=== PATIENT | male | born 1960 | race Hispanic/Latino ===

== ENCOUNTER 2019-10-15 16:34 | Inpatient (IN) | payer OTHER, MEDICARE ==
[~2019-10-15] VITALS: Ht 170.2 cm; Wt 73.3 kg
[~2019-10-15 16:34] MED LIST: AMIODARONE HCL 50 MG/ML 3 ML VIAL IV ONE; ATROPINE SULFATE 0.1 MG/ML 10 ML SYG IVP ONE; CALCIUM CHLORIDE 100 MG/ML 10 ML SYG IVP ONE; DOPAMINE HCL 400 MG/D5%-WATER 250 ML IV ONE; EPINEPHRINE 0.1 MG/ML 10 ML SYG IVP ONE; NOREPINEPHRINE BITARTRATE 1 MG/1 ML ML IV ONE; SODIUM BICARB 8.4% 50ML SYRINGE IVP ONE
[2019-10-15 19:00] VITALS: BP 134/76
[2019-10-15] MEDS ORDERED: TRAMADOL HCL 50 MG TABLET PO PRN ×2 (19:00)
[2019-10-15] MEDS ORDERED: ONDANSETRON HCL 4 MG/2 ML VIAL IVP PRN (19:00)
[2019-10-15 20:00] VITALS: BP 134/76
[2019-10-15 20:22] LABS: HEMATOCRIT 27.6 % (42-54); MEAN CORPUSCULAR VOLUME 93.9 fL (79-99); PLATELET COUNT (AUTO) 141 K/uL (130-400); RED BLOOD CELL COUNT(AUTO) 2.94 MIL/uL (4.50-6.20); RED CELL DISTRIBUTION WIDTH 16.9 % (11.0-15.5); WHITE BLOOD COUNT (AUTO) 8.8 K/uL (4.8-10.8)
[2019-10-15 20:35] LABS: INR 1.09 (0.85-1.15); PARTIAL THROMBOPLASTIN TIME 31.5 SEC (26.3-35.5); PROTHROMBIN TIME 11.7 SEC (9.6-11.6)
[2019-10-15 20:39] LABS: B-TYPE NATRIURETIC PEPTIDE > 5000 pg/mL (0-100)
[2019-10-15 20:46] LABS: HEMOGLOBIN A1C 7.7 % (4.0-6.0)
[2019-10-15 20:52] LABS: ALBUMIN 3.1 g/dL (3.5-5.0); BILIRUBIN,TOTAL 1.1 mg/dL (0.2-1.0); POTASSIUM 4.7 mmol/L (3.5-5.1); TOTAL PROTEIN, SERUM 6.8 g/dL (6.0-8.3)
[2019-10-15 21:00] VITALS: BP 149/77
[2019-10-15 22:00] VITALS: BP 145/78
[2019-10-15] MEDS ORDERED: ALPRAZOLAM 1 MG TAB PO PRN (22:00)
[2019-10-15] MEDS ORDERED: ALPRAZOLAM 1 MG TAB ONE (22:13)
[2019-10-15 23:00] VITALS: BP 145/78
[2019-10-16] VITALS (31 sets, daily range): BP systolic 78–164; BP diastolic 38–93
[2019-10-16] MEDS ORDERED: FOLIC ACID PO (04:04)
[2019-10-16] MEDS ORDERED: CALC667C10 PO (04:04)
[2019-10-16] MEDS ORDERED: CLOP75TA14 PO (04:04)
[2019-10-16] MEDS ORDERED: SERT25TA PO (04:04)
[2019-10-16] MEDS ORDERED: NIFE60TA81 PO (04:04)
[2019-10-16] MEDS ORDERED: NITR0.4T50 SL (04:04)
[2019-10-16] MEDS ORDERED: AEC81 PO (04:04)
[2019-10-16] MEDS ORDERED: ATOR40TA69 PO (04:04)
[2019-10-16] MEDS ORDERED: VITAMIN D PO (04:04)
[2019-10-16] MEDS ORDERED: HYDR-4154 PO (04:04)
[2019-10-16] MEDS ORDERED: EZET10TA48 PO (04:04)
[2019-10-16] MEDS ORDERED: METO50TA18 PO (04:04)
[2019-10-16] MEDS ORDERED: ISOS30TA6 PO (04:04)
[2019-10-16] MEDS ORDERED: NITROGLYCERIN 50 MG/D5% WATER 1 BOT ONE ×2 (04:11→07:18)
[2019-10-16] MEDS ORDERED: NOREPINEPHRINE BITARTRATE 8 MG in DEXTROSE 5%-WATER 250 ML IV PRN (06:15)
[2019-10-16] MEDS ORDERED: EPINEPHRINE 10 MG in SODIUM CHLORIDE 0.9% 240 ML IV PRN (06:15)
[2019-10-16] MEDS ORDERED: AMINOCAPROIC ACID 15,000 MG in SODIUM CHLORIDE 0.9% 500ML 500 ML IV PRN (06:15)
[2019-10-16] MEDS ORDERED: CEFAZOLIN SODIUM 1 GM VIAL IVP PRN (07:00)
[2019-10-16] MEDS ORDERED: CEFAZOLIN SODIUM 1 GM VIAL ONE ×2 (07:25→21:57)
[2019-10-16] MEDS ORDERED: PAPAVERINE HCL 30 MG/ML 2ML VIAL ONE (07:25)
[2019-10-16] MEDS ORDERED: SODIUM CHLORIDE 0.9% 1000ML 1,000 ML IV ONE (07:36)
[2019-10-16] MEDS ORDERED: EPINEPHRINE 1 MG/ML AMPULE ONE ×2 (07:43→19:54)
[2019-10-16] MEDS ORDERED: ESMOLOL HCL 10 MG/ML 10 ML VIAL ONE (07:43)
[2019-10-16] MEDS ORDERED: HEPARIN SODIUM 1000UNIT/ML 10ML VIAL ONE ×3 (07:43→21:29)
[2019-10-16] MEDS ORDERED: PROTAMINE SULFATE 10 MG/ML 25ML VIAL IV ONE (07:43)
[2019-10-16] MEDS ORDERED: LIDOCAINE PF 2% 5ML ABBOJECT ONE ×3 (07:43→22:02)
[2019-10-16] MEDS ORDERED: SODIUM BICARB 50MEQ 50ML VIAL ONE ×2 (07:43→10:29)
[2019-10-16] MEDS ORDERED: AMINOCAPROIC ACID 250 MG/ML 20 ML VIAL IV ONE (07:44)
[2019-10-16] MEDS ORDERED: MIDAZOLAM HCL 1 MG/ML 2ML VIAL ONE (07:44)
[2019-10-16] MEDS ORDERED: PROPOFOL 10 MG/ML 20ML VIAL IV ONE (07:44)
[2019-10-16] MEDS ORDERED: ROCURONIUM 10MG/1ML SYR 10 MG/ML ML ONE ×2 (07:44→20:29)
[2019-10-16] MEDS ORDERED: FENTANYL CITRATE PF 50 MCG/1 ML 20ML VIAL IJ ONE (07:44)
[2019-10-16] MEDS ORDERED: NOREPINEPHRINE BITARTRATE 1 MG/1 ML ML IV ONE ×2 (07:44→15:52)
[2019-10-16] MEDS ORDERED: VASOPRESSIN 20 UNITS/ML 1ML VIAL ONE ×4 (07:45→22:03)
[2019-10-16] MEDS ORDERED: GLYCOPYRROLATE 1 MG/5 ML SYRINGE ONE (07:45)
[2019-10-16] MEDS ORDERED: ETOMIDATE 2 MG/ML 10 ML VIAL ONE (07:46)
[2019-10-16] MEDS ORDERED: AMIODARONE HCL 50 MG/ML 3 ML VIAL ONE ×3 (07:46→22:02)
[2019-10-16 09:18] LABS: ABG BASE EXCESS 1.8 mmol/L (-2.0-3.0); ABG HCO3 24.6 mmol/L (21.0-28.0); ABG OXYGEN SATURATION 98.8 % (95.0-99.0); ABG PCO2 32 mmHg (35-48)
[2019-10-16] MEDS ORDERED: SODIUM CHLORIDE 0.9% 500ML 500 ML IV SCH (09:36)
[2019-10-16] MEDS ORDERED: AMINOCAPROIC ACID 15,000 MG in SODIUM CHLORIDE 0.9% 250 ML IV SCH (09:45)
[2019-10-16] MEDS ORDERED: ONDANSETRON HCL 4 MG/2 ML VIAL IV PRN (09:45)
[2019-10-16] MEDS ORDERED: NOREPINEPHRINE 4MG/NS 250ML 250 ML IV PRN (09:45)
[2019-10-16] MEDS ORDERED: GLUCAGON 1MG KIT 1 MG ML IM PRN (09:45)
[2019-10-16] MEDS ORDERED: ACETAMINOPHEN 650 MG SUPPOSITORY RC PRN (09:45)
[2019-10-16] MEDS ORDERED: MORPHINE SULFATE 2 MG/ML 1ML SYG IV PRN (09:45)
[2019-10-16] MEDS ORDERED: POTASSIUM CHLORIDE 20MEQ/100ML 100 ML IV PRN (09:45)
[2019-10-16] MEDS ORDERED: MORPHINE SULFATE 4 MG/1ML SYG IV PRN (09:45)
[2019-10-16] MEDS ORDERED: ACETAMINOPHEN 325 MG TAB PO PRN (09:45)
[2019-10-16] MEDS ORDERED: ALBUMIN (HUMAN) 5% 250 ML IV PRN (09:45)
[2019-10-16] MEDS ORDERED: INSULIN REGULAR, HUMAN 3ML 100 UNIT in SODIUM CHLORIDE 0.9% 99 ML IV SCH ×2 (09:45)
[2019-10-16] MEDS ORDERED: NITROGLYCERIN 50 MG/D5% WATER 250 BOT IV SCH (09:45)
[2019-10-16] MEDS ORDERED: EPINEPHRINE 10 MG in DEXTROSE 5%-WATER 250 ML IV PRN (09:45)
[2019-10-16] MEDS ORDERED: SODIUM CHLORIDE 0.9% 1000ML 1,000 ML IV SCH (09:45)
[2019-10-16] MEDS ORDERED: SODIUM CHLORIDE 0.9% 10 ML VIAL IVP PRN (09:45)
[2019-10-16] MEDS ORDERED: POTASSIUM PHOS 15 mMOL+NS250ML 250 ML IV PRN (09:45)
[2019-10-16] MEDS ORDERED: MAGNESIUM 2GM PREMIX 50ML 50 ML IV PRN (09:45)
[2019-10-16 10:16] LABS: ABG HCO3 25.6 mmol/L (21.0-28.0); ABG OXYGEN SATURATION 98.4 % (95.0-99.0); ABG PCO2 41 mmHg (35-48)
[2019-10-16 10:57] LABS: ABG BASE EXCESS 2.7 mmol/L (-2.0-3.0); ABG HCO3 26.8 mmol/L (21.0-28.0); ABG OXYGEN SATURATION 98.5 % (95.0-99.0); ABG PCO2 39 mmHg (35-48)
[2019-10-16 11:31] LABS: ABG BASE EXCESS 1.6 mmol/L (-2.0-3.0); ABG HCO3 25.4 mmol/L (21.0-28.0); ABG OXYGEN SATURATION 98.3 % (95.0-99.0); ABG PCO2 36 mmHg (35-48)
[2019-10-16 12:37] LABS: HEMATOCRIT 21.5 % (42-54); MEAN CORPUSCULAR HEMOGLOBIN 31.3 pg (27.0-33.0); MEAN CORPUSCULAR VOLUME 94.7 fL (79-99); RED BLOOD CELL COUNT(AUTO) 2.27 MIL/uL (4.50-6.20); RED CELL DISTRIBUTION WIDTH 16.8 % (11.0-15.5); WHITE BLOOD COUNT (AUTO) 21.7 K/uL (4.8-10.8)
[2019-10-16 12:47] LABS: ABG BASE EXCESS -0.8 mmol/L (-2.0-3.0); ABG HCO3 23.2 mmol/L (21.0-28.0); ABG OXYGEN SATURATION 96.7 % (95.0-99.0); ABG PCO2 35 mmHg (35-48)
[2019-10-16 12:52] LABS: ABG OXYGEN SATURATION 64.5 % (95.0-99.0); BASE EXCESS,VENOUS BLOOD GAS -0.3 (-2.0-3.0); HCO3,VENOUS BLOOD GAS 24.5 (21.0-28.0); PCO2,VENOUS BLOOD GAS 41 (35-48); PH,VENOUS BLOOD GAS 7.398 (7.350-7.450)
[2019-10-16 12:54] LABS: INR 1.26 (0.85-1.15); PARTIAL THROMBOPLASTIN TIME 26.8 SEC (26.3-35.5); PROTHROMBIN TIME 13.5 SEC (9.6-11.6)
[2019-10-16 13:14] LABS: CREATININE 7.3 mg/dL (0.5-1.5); POTASSIUM 4.7 mmol/L (3.5-5.1)
[2019-10-16 13:17] LABS: MAGNESIUM 2.4 mg/dL (1.80-2.40); PHOSPHORUS 6.8 mg/dL (2.5-4.9)
[2019-10-16 13:51] LABS: ABG BASE EXCESS -4.5 mmol/L (-2.0-3.0); ABG HCO3 20.2 mmol/L (21.0-28.0); ABG OXYGEN SATURATION 97.9 % (95.0-99.0); ABG PCO2 35 mmHg (35-48)
[2019-10-16] MEDS: SODIUM BICARB 50MEQ 50ML VIAL IV PRN ×9 (13:55→21:22)
--- NOTE | 2019-10-16 14:00 | NUR ---
DR. DENIS CALLED AND NOTIFIED OF DECREASED BLOOD PRESSURE,HEMODYNAMICS/ LAST ABG RESULTS/ NEED TO INCREASE LEVOPHED. NEW ORDER RECEIVED TO TRANSFUSE SECOND UNIT PRBC.
--- NOTE | 2019-10-16 14:33 | NUR ---
PT RECEIVING 2ND UNIT OF PRBC ORDERED. NO ADVERSE REACTION. PT WAKES UP INTERMITTENTLY, ATTEMPTS TO MOUTH WORDS, MOVING UPPER EXTREMITIES, NODS YES BUT UNABLE TO FOLLOW OTHER COMMANDS AT THIS TIME.
[2019-10-16] MEDS ORDERED: CALCIUM GLUCONATE 1 GM/10 ML VIAL IV ONE ×4 (14:38→19:09)
[2019-10-16 14:46] LABS: ABG BASE EXCESS -0.7 mmol/L (-2.0-3.0); ABG HCO3 22.7 mmol/L (21.0-28.0); ABG OXYGEN SATURATION 94.1 % (95.0-99.0); ABG PCO2 32 mmHg (35-48)
--- NOTE | 2019-10-16 15:00 | NUR ---
DR. DENIS CALLED AND NOTIFIED OF DECREASED BLOOD PRESSURE AND NEED TO INCREASE VASOPRESSORS. NOTIFIED OF PT HEMODYNAMICS AD LAB/ABG RESULTS. NEW ORDERS OBTAINED AND NOTED.
[2019-10-16] MEDS ORDERED: ALBUMIN (HUMAN) 5% 250 ML IV ONE ×2 (15:15→15:34)
--- NOTE | 2019-10-16 15:24 | NUR ---
WALDEMAR PLAN PATIENT MOVED TO R FOR CABG 10/15. EMEKA WILL CONTINUE TO FOLLOW. Addendum: 10/16/19 at 1525 by ZURI MARIN RN CM Amended: Links added.
[2019-10-16] MEDS ORDERED: ALBUMIN (HUMAN) 5% 250 ML IV SCH ×2 (15:30)
[2019-10-16] MEDS: CEFAZOLIN SODIUM 1 GM VIAL IV SCH ×2 (15:36→23:33)
[2019-10-16 15:58] LABS: ABG BASE EXCESS -2.8 mmol/L (-2.0-3.0); ABG HCO3 21.1 mmol/L (21.0-28.0); ABG OXYGEN SATURATION 81.9 % (95.0-99.0); ABG PCO2 33 mmHg (35-48)
[2019-10-16] MEDS ORDERED: NOREPINEPHRINE BITARTRATE 8 MG in SODIUM CHLORIDE 0.9% 250 ML IV SCH (16:00)
[2019-10-16] MEDS: DEXMEDETOMIDINE HCL 200 MCG in SODIUM CHLORIDE 0.9% 50 ML IV SCH (16:00)
--- NOTE | 2019-10-16 16:10 | NUR ---
2D ECHO COMPLETED AT BEDSIDE. DR. DENIS CALLED AND UPDATED ON RESULT AND PERSISTENT HYPOTENSION. NEW ORDERS RECEIVED AND NOTED.
[2019-10-16] MEDS ORDERED: VASOPRESSIN 20 UNITS in SODIUM CHLORIDE 0.9% 100 ML IV SCH (16:15)
[2019-10-16] MEDS ORDERED: ALBUMIN (HUMAN) 5% 500 ML IV ONE ×2 (16:46→18:35)
[2019-10-16 16:56] LABS: ABG BASE EXCESS -2.8 mmol/L (-2.0-3.0); ABG HCO3 20.7 mmol/L (21.0-28.0); ABG OXYGEN SATURATION 89.5 % (95.0-99.0); ABG PCO2 31 mmHg (35-48)
--- NOTE | 2019-10-16 17:30 | NUR ---
DR. DENIS CALLED AND UPDATED IN PERSISTENT HYPOTENSION. VASOPRESSIN AT 0.04 UNIT/MIN. DR. DENIS WILL COME TO INSERT IABP.
[2019-10-16 17:45] LABS: ABG BASE EXCESS -1.8 mmol/L (-2.0-3.0); ABG HCO3 21.2 mmol/L (21.0-28.0); ABG OXYGEN SATURATION 98.3 % (95.0-99.0); ABG PCO2 29 mmHg (35-48)
[2019-10-16] MEDS: DEXTROSE 50%-WATER 50 ML DISP.SYRIN IV PRN ×2 (17:49→20:19)
[2019-10-16] MEDS ORDERED: FENTANYL CITRATE PF 50 MCG/1 ML 2ML VIAL ONE (17:59)
--- NOTE | 2019-10-16 18:15 | NUR ---
IABP 7.5 FR, 40 CC BALLOON PLACED BY DR. DENIS AT BEDSIDE TO RIGHT FEMORAL. IABP PLACED AT 1:1, 100 % AUGMENTATION, EKG TRIGGER. IABP WITH ADEQUATE WAVEFORM. PEDAL PULSES BY DOPPLER. MD REMAINS AT BEDSIDE.
[2019-10-16 18:47] LABS: ABG BASE EXCESS -3.8 mmol/L (-2.0-3.0); ABG HCO3 21.6 mmol/L (21.0-28.0); ABG OXYGEN SATURATION 98.3 % (95.0-99.0); ABG PCO2 41 mmHg (35-48)
[2019-10-16] MEDS ORDERED: MILRINONE-D5W 20 MG/100 ML 100 ML IV SCH (19:00)
[2019-10-16] MEDS ORDERED: MILRINONE-D5W 20 MG/100 ML 100 ML IV ONE (19:01)
[2019-10-16 19:05] LABS: ABG BASE EXCESS 3.9 mmol/L (-2.0-3.0); ABG HCO3 27.6 mmol/L (21.0-28.0); ABG OXYGEN SATURATION 96.5 % (95.0-99.0); ABG PCO2 38 mmHg (35-48)
[2019-10-16] MEDS: ALBUMIN (HUMAN) 5% 250 ML IV SCH ×2 (19:15→20:15)
[2019-10-16] MEDS ORDERED: PHARMACY COMMUNICATION MISC SCH (19:15)
[2019-10-16 19:35] LABS: ABG BASE EXCESS 0.2 mmol/L (-2.0-3.0); ABG HCO3 24.1 mmol/L (21.0-28.0); ABG OXYGEN SATURATION 97.6 % (95.0-99.0); ABG PCO2 35 mmHg (35-48)
--- NOTE | 2019-10-16 19:44 | NUR ---
1854 request for nitrous oxide which is not available at [facility] , requesting to follow up with [facility] call place to [facility] warehouse representative which [place] [facility] [place] made aware. Andrew tinsley
[2019-10-16] MEDS: CALCIUM GLUCONATE 1 GM in SODIUM CHLORIDE 0.9% 50 ML IV PRN ×4 (20:00→20:45)
[2019-10-16 20:04] LABS: ABG BASE EXCESS -4.5 mmol/L (-2.0-3.0); ABG HCO3 20.9 mmol/L (21.0-28.0); ABG OXYGEN SATURATION 92.6 % (95.0-99.0); ABG PCO2 40 mmHg (35-48)
[2019-10-16] MEDS ORDERED: ROCURONIUM BROMIDE 100 MG in SODIUM CHLORIDE 0.9% 100 ML IV STA (20:30)
[2019-10-16 20:36] LABS: ABG BASE EXCESS 0.6 mmol/L (-2.0-3.0); ABG HCO3 25.7 mmol/L (21.0-28.0); ABG OXYGEN SATURATION 94.3 % (95.0-99.0); ABG PCO2 43 mmHg (35-48)
[2019-10-16] MEDS ORDERED: EPINEPHRINE 0.1 MG/ML 10 ML SYG ONE (20:58)
--- NOTE | 2019-10-16 21:00 | NUR ---
at bedside and spoke with Dr. Pride on patient status.
[2019-10-16 21:18] LABS: ABG BASE EXCESS -3.6 mmol/L (-2.0-3.0); ABG OXYGEN SATURATION 97.4 % (95.0-99.0); ABG PCO2 36 mmHg (35-48)
--- NOTE | 2019-10-16 21:40 | NUR ---
Patient back to OR by Dr. Pride at 2140.
[2019-10-16 22:21] LABS: ABG BASE EXCESS 1.2 mmol/L (-2.0-3.0); ABG HCO3 25.2 mmol/L (21.0-28.0); ABG OXYGEN SATURATION 97.7 % (95.0-99.0); ABG PCO2 37 mmHg (35-48)
[2019-10-16] MEDS ORDERED: FENTANYL CITRATE PF 50 MCG/1 ML 5ML AMP IV ONE (22:34)
--- NOTE | 2019-10-16 23:00 | NUR ---
Patient back from OR at 2300 with EPI at .15 mcg/kg/min, Levo at 4 mcg/min, Vasopressin at 0.04 units/min, and Precedex at 0.4 mcg/kg/hr with baloon pump remaining in right femoral.
[2019-10-16] MEDS: FAMOTIDINE/PF 20 MG/2 ML VIAL IV SCH (23:34)
[2019-10-16 23:43] LABS: ABG BASE EXCESS 0.9 mmol/L (-2.0-3.0); ABG HCO3 24.3 mmol/L (21.0-28.0); ABG OXYGEN SATURATION 95.3 % (95.0-99.0); ABG PCO2 34 mmHg (35-48)
[2019-10-17] VITALS (25 sets, daily range): BP systolic 113–183; BP diastolic 43–74
[2019-10-17] MEDS: DEXMEDETOMIDINE HCL 200 MCG in SODIUM CHLORIDE 0.9% 50 ML IV SCH ×3 (00:05→21:40)
[2019-10-17 04:36] LABS: ABG BASE EXCESS 6.6 mmol/L (-2.0-3.0); ABG HCO3 27.2 mmol/L (21.0-28.0); ABG OXYGEN SATURATION 96.9 % (95.0-99.0); ABG PCO2 26 mmHg (35-48)
[2019-10-17] MEDS: CALCIUM GLUCONATE 1 GM in SODIUM CHLORIDE 0.9% 50 ML IV PRN ×4 (04:43→18:16)
[2019-10-17 04:46] LABS: HEMATOCRIT 27.5 % (42-54); MEAN CORPUSCULAR HEMOGLOBIN 29.6 pg (27.0-33.0); MEAN CORPUSCULAR HGB CONC 35.3 g/dL (32.0-36.0); MEAN CORPUSCULAR VOLUME 83.8 fL (79-99); NUCLEATED RED BLOOD CELLS 0.3 % (0.0-0.19); RED BLOOD CELL COUNT(AUTO) 3.28 MIL/uL (4.50-6.20); RED CELL DISTRIBUTION WIDTH 15.9 % (11.0-15.5)
[2019-10-17 04:57] LABS: CREATININE 7.1 mg/dL (0.5-1.5); PHOSPHORUS 6.3 mg/dL (2.5-4.9); POTASSIUM 4.9 mmol/L (3.5-5.1)
[2019-10-17 05:02] LABS: INR 1.58 (0.85-1.15); PARTIAL THROMBOPLASTIN TIME 30.6 SEC (26.3-35.5); PROTHROMBIN TIME 16.8 SEC (9.6-11.6)
[2019-10-17] MEDS ORDERED: PHARMACY COMMUNICATION MISC SCH (06:00)
[2019-10-17] MEDS: CEFAZOLIN SODIUM 1 GM VIAL IV SCH (06:22)
[2019-10-17] MEDS: PROPOFOL 1000 MG/100 ML 100 ML IV PRN ×2 (06:34→06:35)
[2019-10-17 07:53] LABS: ABG BASE EXCESS 9.8 mmol/L (-2.0-3.0); ABG HCO3 32.1 mmol/L (21.0-28.0); ABG OXYGEN SATURATION 97.1 % (95.0-99.0); ABG PCO2 35 mmHg (35-48)
--- NOTE | 2019-10-17 08:10 | NUR ---
DR. RAY NOTIFIED OF CONSULT. NEW ORDERS RECEIVED AND NOTED. PLAN FOR DIALYSIS TODAY.
--- NOTE | 2019-10-17 08:17 | NUR ---
MESSAGE LEFT AT [facility] TO NOTIFY OF CONSULT.
--- NOTE | 2019-10-17 08:18 | NUR ---
DR. LIANG NOTIFIED OF CONSULT.
[2019-10-17] MEDS: FAMOTIDINE/PF 20 MG/2 ML VIAL IV SCH ×2 (08:42→20:18)
[2019-10-17 08:56] LABS: ABG BASE EXCESS 12.3 mmol/L (-2.0-3.0); ABG HCO3 32.9 mmol/L (21.0-28.0); ABG OXYGEN SATURATION 93.3 % (95.0-99.0); ABG PCO2 29 mmHg (35-48)
--- NOTE | 2019-10-17 09:16 | NUR ---
DR. DENIS IN TO SEE PT. PLAN OF CARE DISCUSSED. NOTIFIED OF LAB RESULTS/HEMODYNAMICS/ABG/ CXR RESULT/CHEST TUBE OUTPUT. NEW ORDERS RECEIVED AND NOTED.
--- NOTE | 2019-10-17 10:19 | NUR ---
TRANSFUSING CRYO/PLATELETS ORDERED. TOLERATING WELL. NO ADVERSE REACTION NOTED.
[2019-10-17 10:42] LABS: HEMATOCRIT 24.9 % (42-54)
[2019-10-17 11:00] LABS: INR 1.26 (0.85-1.15); PARTIAL THROMBOPLASTIN TIME 28.5 SEC (26.3-35.5); PROTHROMBIN TIME 13.5 SEC (9.6-11.6)
[2019-10-17 11:29] LABS: ABG BASE EXCESS 12.7 mmol/L (-2.0-3.0); ABG HCO3 35.8 mmol/L (21.0-28.0); ABG OXYGEN SATURATION 94.6 % (95.0-99.0); ABG PCO2 40 mmHg (35-48)
--- NOTE | 2019-10-17 11:50 | NUR ---
NANDA PULIDO AT BEDSIDE TPO SEE PT.
[2019-10-17] MEDS ORDERED: ALBUMIN (HUMAN) 25% 200 ML IV ONE (12:20)
--- NOTE | 2019-10-17 12:28 | NUR ---
PT RECEIVING HEMODIALYSIS ORDERED.
[2019-10-17] MEDS ORDERED: EPOETIN ALFA 10,000 UNIT/ML VIAL SQ SCH (12:30)
[2019-10-17] MEDS: CEFAZOLIN SODIUM 1 GM VIAL IVP SCH ×2 (13:20→20:40)
--- NOTE | 2019-10-17 13:20 | NUR ---
IABP discontinued by Dr. Pride without any complications. Manual pressure held for 30 minutes. Site intact, no hematoma. Pedal pulses by doppler.
--- NOTE | 2019-10-17 13:43 | NUR ---
WALDEMAR PLAN VISITED WITH PATIENT. PATIENT IN CVR VENTED. HAD TO GO BACK TO SURGERY FOR STERNAL BLEEED. EMEKA WILL CONTINUE TO FOLLOW. Addendum: 10/17/19 at 1344 by ZURI MARIN RN CM Amended: Links added.
--- NOTE | 2019-10-17 13:45 | NUR ---
Thierry DIANE, HOOKING MACHINE OPERATOR AT BEDSIDE TO SEE PT.
--- NOTE | 2019-10-17 14:00 | NUR ---
DR. RAY IN TO SEE PT. PLAN OF CARE DISCUSSED. PT CONTINUES ON HEMODIALYSIS.
--- NOTE | 2019-10-17 15:00 | NUR ---
SEDATION WEANED OFF, WEANING FROM VENT INITIATED. PT MOVES ALL EXTREMITIES. INSTRUCTED ON WEANING PROCESS AND IMPORTANCE OF DEEP BREATHING.
--- NOTE | 2019-10-17 15:00 | NUR ---
HD COMPLETED BY HD NURSE. TOLERATED WELL. 1.5 L REMOVED.
[2019-10-17 15:01] LABS: ABG BASE EXCESS 9.9 mmol/L (-2.0-3.0); ABG HCO3 32.7 mmol/L (21.0-28.0); ABG OXYGEN SATURATION 97.2 % (95.0-99.0); ABG PCO2 37 mmHg (35-48)
--- NOTE | 2019-10-17 15:14 | NUR ---
Per Nursing to HOLD Physical Therapy Evaluation today.Will attempt to initiate PT Evaluation 09/2019. Addendum: 10/17/19 at 1515 by JOSE ANTONIO GRANT, PT PT Amended: Links added.
[2019-10-17 15:38] LABS: ABG BASE EXCESS 10.8 mmol/L (-2.0-3.0); ABG HCO3 33.6 mmol/L (21.0-28.0); ABG OXYGEN SATURATION 92.3 % (95.0-99.0); ABG PCO2 38 mmHg (35-48)
--- NOTE | 2019-10-17 15:50 | NUR ---
DR. LIANG AT BEDSIDE TO SEE PT.
[2019-10-17 16:48] LABS: ABG BASE EXCESS 9.5 mmol/L (-2.0-3.0); ABG HCO3 32.7 mmol/L (21.0-28.0); ABG OXYGEN SATURATION 91.9 % (95.0-99.0); ABG PCO2 39 mmHg (35-48)
[2019-10-17] MEDS ORDERED: IPRATROPIUM 0.5 MG/2.5 ML INH IH SCH (17:00)
--- NOTE | 2019-10-17 17:00 | NUR ---
DR. DENIS CALLED AND NOTIFIED OF PT ABG RESULTS ON CPAP 5/5 40 %, MD NOTIFIED PT IS AWAKE AND RESTLESS, IS NOT FOLLOWING COMMANDS APPROPRIATELY, RR 30-40S, UNABLE TO PERFORM NIP OR VITAL CAPACITY. NEW ORDERS RECEIVED AND NOTED.
--- NOTE | 2019-10-17 17:08 | NUR ---
PT EXTUBATED ORDERED AND PLACED ON BIPAP R 14, 14/7, 40 %. O2 SAT 100%, PT APPEARS MORE CALM AT TIMES, RR 27, UNABLE TO FOLLOW COMMANDS APPROPRIATELY, DELAYED RESPONSE NOTED, PT OCCASIONALLY BANGING BED AND ATTEMPTING TO GET OUT OF BED, ATTEMPTED TO REORIENT PT BUT PT UNABLE TO FOCUS, NOT FOLLOWING ANY COMMANDS AT THIS TIME, MOVES ALL EXTREMITIES WITH KNOWN WEAKNESS TO LEFT LEG.
--- NOTE | 2019-10-17 17:22 | NUR ---
No family members available at this time. Addendum: 10/17/19 at 1722 by NARGIS VAUGHAN Amended: Links added.
[2019-10-17] MEDS: IPRATROPIUM 0.5 MG/2.5 ML INH IH SCH ×2 (18:00→21:57)
[2019-10-17 18:12] LABS: ABG BASE EXCESS 11.4 mmol/L (-2.0-3.0); ABG HCO3 34.7 mmol/L (21.0-28.0); ABG OXYGEN SATURATION 97.8 % (95.0-99.0); ABG PCO2 41 mmHg (35-48)
[2019-10-17] MEDS ORDERED: ALPR1TAB7 PO (18:25)
[2019-10-17] MEDS: ATORVASTATIN CALCIUM 40 MG TABLET PO SCH (19:55)
[2019-10-17] MEDS: ALPRAZOLAM 1 MG TAB PO PRN ×2 (23:14→23:34)
[2019-10-18] VITALS (24 sets, daily range): BP systolic 94–162; BP diastolic 39–74
[2019-10-18] MEDS: DEXMEDETOMIDINE HCL 200 MCG in SODIUM CHLORIDE 0.9% 50 ML IV SCH ×2 (01:04→05:28)
[2019-10-18] MEDS: TRAMADOL HCL 50 MG TABLET PO PRN ×3 (01:25→18:23)
[2019-10-18] MEDS: IPRATROPIUM 0.5 MG/2.5 ML INH IH SCH ×4 (02:24→19:56)
[2019-10-18] MEDS: CEFAZOLIN SODIUM 1 GM VIAL IVP SCH (04:55)
[2019-10-18 05:09] LABS: MEAN CORPUSCULAR HGB CONC 33.8 g/dL (32.0-36.0); MEAN CORPUSCULAR VOLUME 88.9 fL (79-99); RED BLOOD CELL COUNT(AUTO) 2.7 MIL/uL (4.50-6.20); RED CELL DISTRIBUTION WIDTH 17.2 % (11.0-15.5); WHITE BLOOD COUNT (AUTO) 12.4 K/uL (4.8-10.8)
[2019-10-18 05:38] LABS: ALBUMIN 2.9 g/dL (3.5-5.0); BILIRUBIN,TOTAL 1.7 mg/dL (0.2-1.0); CREATININE 5.2 mg/dL (0.5-1.5); MAGNESIUM 1.9 mg/dL (1.80-2.40); PHOSPHORUS 5.3 mg/dL (2.5-4.9); POTASSIUM 4.7 mmol/L (3.5-5.1); TOTAL PROTEIN, SERUM 5.3 g/dL (6.0-8.3)
[2019-10-18] MEDS ORDERED: PHARMACY COMMUNICATION MISC SCH (05:45)
[2019-10-18 05:46] LABS: % IRON SATURATION 39.1 % (30-44)
[2019-10-18 07:16] LABS: ABG HCO3 30.5 mmol/L (21.0-28.0); ABG PCO2 39 mmHg (35-48)
--- NOTE | 2019-10-18 07:22 | NUR ---
Decreased FiO2 to .40.
--- NOTE | 2019-10-18 07:30 | NUR ---
DR. DENIS IN TO SEE PT. PLAN OF CARE DISCUSSED. NEW ORDERS RECEIVED AND NOTED.
[2019-10-18] MEDS: SERTRALINE HCL 50 MG TABLET PO SCH (08:29)
[2019-10-18] MEDS: ASPIRIN 325 MG TABLET PO SCH (08:29)
[2019-10-18] MEDS: FAMOTIDINE/PF 20 MG/2 ML VIAL IV SCH ×2 (08:30→21:53)
--- NOTE | 2019-10-18 08:30 | NUR ---
DR. NIXON IN TO SEE PT. ASHLEE OF CARE DISCUSSED. PLAN FOR HD TODAY.
--- NOTE | 2019-10-18 08:45 | NUR ---
HD NURSE CALLED AND NOTIFIED OF ORDERS TO DIALYZE PT.
[2019-10-18] MEDS ORDERED: IPRATROPIUM 0.5 MG/2.5 ML INH IH ONE (10:57)
--- NOTE | 2019-10-18 11:23 | NUR ---
[facility] PT initial evaluation this AM per PAMELLA Alexander due to patient is on BiPap and schedule for dialysis.Will attempt this PM. Addendum: 10/18/19 at 1124 by JOSE ANTONIO GRANT PT PT Amended: Links added.
[2019-10-18] MEDS: INSULIN HUMULIN R 100 UNIT/ML 3ML SQ SCH ×3 (11:30→21:00)
--- NOTE | 2019-10-18 12:13 | NUR ---
DR. LIANG AT BEDSIDE TO SEE PT. PLAN OF CARE DISCUSSED.
--- NOTE | 2019-10-18 14:37 | NUR ---
patient still on Dialysis.Will initiate PT Evaluation 10/19/2019 Addendum: 10/18/19 at 1439 by JOSE ANTONIO GRANT, PT PT Amended: Links added.
--- NOTE | 2019-10-18 14:54 | NUR ---
HD IN PLACE. TOLERATING WELL.
--- NOTE | 2019-10-18 16:00 | NUR ---
HD COMPLETED BY HD NURSE. TOLEWRATED WELL. 1.5 L REMOVED.
--- NOTE | 2019-10-18 16:30 | NUR ---
SWAN ALISHA REMOVED ORDERED. CATHETER INTACT. PT PLACED ON NC 4 L, TOLERATING WELL, APPEARS CALM AND RESTING. NODS YES TO QUESTIONS ASKED APPROPRIATELY. NO RESP DISTRESS NOTED. CONTINUE TO MONITOR PT.
[2019-10-18] MEDS: ATORVASTATIN CALCIUM 40 MG TABLET PO SCH (21:53)
[2019-10-19] VITALS (28 sets, daily range): BP systolic 1–157; BP diastolic 1–97
[2019-10-19] MEDS: IPRATROPIUM 0.5 MG/2.5 ML INH IH SCH ×5 (00:35→23:13)
--- NOTE | 2019-10-19 04:30 | NUR ---
A-LINE PATIENT RESTLESS. ATTEMPTING TO GET OUT OF BED. PATIENT PULLED OUT A-LINE. PRESSURE HELD FOR 30 MIN. HEMOSTASIS ACHIEVED. PRESSURE DRESSING APPLIED. NO HEMATOMA NOTED.
[2019-10-19 06:41] LABS: HEMATOCRIT 25.3 % (42-54); MEAN CORPUSCULAR HEMOGLOBIN 29.4 pg (27.0-33.0); MEAN CORPUSCULAR HGB CONC 32.4 g/dL (32.0-36.0); MEAN CORPUSCULAR VOLUME 90.7 fL (79-99); NUCLEATED RED BLOOD CELLS 0.8 % (0.0-0.19); PLATELET COUNT (AUTO) 64 K/uL (130-400); RED BLOOD CELL COUNT(AUTO) 2.79 MIL/uL (4.50-6.20); RED CELL DISTRIBUTION WIDTH 17.1 % (11.0-15.5); WHITE BLOOD COUNT (AUTO) 11.9 K/uL (4.8-10.8)
--- NOTE | 2019-10-19 06:45 | NUR ---
OOB TO CHAIR PATIENT MOVED OOB TO BEDSIDE CHAIR WITH ASSIST X 2. TOLERATED ACTIVITY WELL WEIGHT BEARING ON BOTH LEGS. WEAKNESS ON LEFT SIDE FROM PREVIOUS CVA. POSITIONED TO COMFORT. PATIENT OFF EPINEPHRINE DRIP. 2 L NASAL CANNULA. NO ACUTE SIGNS OR SYMPTOMS OF DISTRESS NOTED. AAOX2. DIALED WIFES NUMBER ON PATIENTS PERSONAL CELL PHONE. PATIENT SPOKE TO SPOUSE
[2019-10-19 06:57] LABS: CREATININE 4.9 mg/dL (0.5-1.5)
[2019-10-19] MEDS: INSULIN HUMULIN R 100 UNIT/ML 3ML SQ SCH ×4 (07:30→21:00)
[2019-10-19 08:58] LABS: B-TYPE NATRIURETIC PEPTIDE 4220 pg/mL (0-100)
[2019-10-19] MEDS: Vitamin B Complex/Vit C/Folic Acid PO SCH (09:41)
[2019-10-19] MEDS: FAMOTIDINE/PF 20 MG/2 ML VIAL IV SCH (09:41)
[2019-10-19] MEDS: SERTRALINE HCL 50 MG TABLET PO SCH (09:42)
[2019-10-19] MEDS: ASPIRIN 325 MG TABLET PO SCH (09:42)
[2019-10-19] MEDS: METOPROLOL TARTRATE 25 MG TAB PO SCH ×3 (09:42→21:04)
[2019-10-19] MEDS: TRAMADOL HCL 50 MG TABLET PO PRN ×2 (09:44→13:37)
--- NOTE | 2019-10-19 10:00 | NUR ---
PT WAS PLACED BACK TO BED TO START ON DIALYSIS THERAPY. PT WAS NOTED TO HAVE A. FIB ON THE MONITOR AND HAD BEEN NORMAL SINUS RHYTHM HR IN THE 80'S. LIZ VEE NOTIFIED OF RHYTHM CHANGE AND ORDER NOTED.
--- NOTE | 2019-10-19 11:30 | NUR ---
Patient is on Dialysis.Per Sha Haines RN patient was OOB by Nursing.Will attempt to initiate Physical Therapy evaluation in PM. Addendum: 10/19/19 at 1319 by JOSE ANTONIO GRANT, PT PT Amended: Links added.
[2019-10-19] MEDS ORDERED: METOPROLOL TARTRATE 25 MG TAB PO SCH (11:45)
--- NOTE | 2019-10-19 14:01 | NUR ---
DC PLAN VISITED WITH PATIENT. PATIENT GETTING DIALYSIS TREATMENT. NURSE HOLDING PRESSURE DUE TO BLEEDING. ASKED TO COME BACK. EMEKA WILL CONTINUE TO FOLLOW. Addendum: 10/19/19 at 1403 by ZURI MARIN RN CM Amended: Links added.
[2019-10-19] MEDS: ALPRAZOLAM 1 MG TAB PO PRN (14:56)
--- NOTE | 2019-10-19 15:00 | NUR ---
PT HAD COMPLETED HIS DIALYSIS AND 1500 CC WERE REMOVED AND PT HAD BEEN MEDICATED FOR PAIN AND CT X4 WERE REMOVED AND NO PROBLEMS NOTED.
--- NOTE | 2019-10-19 15:28 | NUR ---
Patient just finished Dialysis and per Sha Haines RN patient recently removed chest tube.Not ready to evaluate and treat for Physical Therapy. Addendum: 10/19/19 at 1530 by JOSE ANTONIO GRANT, PT PT Amended: Links added.
[2019-10-19] MEDS ORDERED: PHARMACY COMMUNICATION MISC SCH (20:15)
[2019-10-19] MEDS: ATORVASTATIN CALCIUM 40 MG TABLET PO SCH (21:03)
[2019-10-20] VITALS (17 sets, daily range): BP systolic 101–143; BP diastolic 46–70
[2019-10-20 04:13] LABS: HEMATOCRIT 28.1 % (42-54); MEAN CORPUSCULAR HEMOGLOBIN 29.9 pg (27.0-33.0); MEAN CORPUSCULAR HGB CONC 32.7 g/dL (32.0-36.0); MEAN CORPUSCULAR VOLUME 91.2 fL (79-99); NUCLEATED RED BLOOD CELLS 0.7 % (0.0-0.19); RED BLOOD CELL COUNT(AUTO) 3.08 MIL/uL (4.50-6.20); RED CELL DISTRIBUTION WIDTH 16.7 % (11.0-15.5); WHITE BLOOD COUNT (AUTO) 14.5 K/uL (4.8-10.8)
[2019-10-20 04:28] LABS: CREATININE 3.7 mg/dL (0.5-1.5); MAGNESIUM 2.3 mg/dL (1.80-2.40); PHOSPHORUS 5.5 mg/dL (2.5-4.9); POTASSIUM 4.4 mmol/L (3.5-5.1)
[2019-10-20] MEDS: IPRATROPIUM 0.5 MG/2.5 ML INH IH SCH ×4 (06:40→23:17)
[2019-10-20] MEDS: INSULIN HUMULIN R 100 UNIT/ML 3ML SQ SCH ×4 (07:30→21:00)
[2019-10-20] MEDS: ASPIRIN 325 MG TABLET PO SCH (08:43)
[2019-10-20] MEDS: FAMOTIDINE 20MG TAB 20 MG TAB PO SCH (08:44)
[2019-10-20] MEDS: METOPROLOL TARTRATE 25 MG TAB PO SCH ×3 (08:45→21:23)
[2019-10-20] MEDS: SERTRALINE HCL 50 MG TABLET PO SCH (08:45)
[2019-10-20] MEDS: Vitamin B Complex/Vit C/Folic Acid PO SCH (08:45)
[2019-10-20] MEDS: TRAMADOL HCL 50 MG TABLET PO PRN (10:00)
--- NOTE | 2019-10-20 13:36 | NUR ---
DC PLAN VISITED WITH PATIENT. SPOKE TO . WANTED SNF NEAR HOME. BUT WANTS ONE THAT LETS FAMILY VISIT. CALLED NO FACILITY ACCEPTING FAMILY VISITS. PER CDC AND STATE RECOMMENDATIONS. LET SPOUSE KNOW SAID WILL TALK TO KIDS AND SEE WHAT THE PLAN WILL BE POSSIBLE TO RETURN HOME. [facility] SNF LIST WITH STARS LEFT IN PATIENT ROOM. NO SERVICES OR DME PRIOR TO ADMISSION. PENDING FINAL DECISION BY FAMILY. Addendum: 10/20/19 at 1340 by ZURI MARIN RN Amended: Links added.
[2019-10-20] MEDS: ATORVASTATIN CALCIUM 40 MG TABLET PO SCH (21:23)
[2019-10-21 03:41] VITALS: BP 128/61
[2019-10-21 06:10] LABS: HEMATOCRIT 28.9 % (42-54); MEAN CORPUSCULAR HEMOGLOBIN 29.4 pg (27.0-33.0); MEAN CORPUSCULAR HGB CONC 32.5 g/dL (32.0-36.0); MEAN CORPUSCULAR VOLUME 90.3 fL (79-99); RED BLOOD CELL COUNT(AUTO) 3.2 MIL/uL (4.50-6.20); RED CELL DISTRIBUTION WIDTH 17.3 % (11.0-15.5); WHITE BLOOD COUNT (AUTO) 11.8 K/uL (4.8-10.8)
[2019-10-21] MEDS: IPRATROPIUM 0.5 MG/2.5 ML INH IH SCH ×4 (06:23→23:12)
[2019-10-21 06:28] LABS: CREATININE 5.3 mg/dL (0.5-1.5)
[2019-10-21] MEDS: INSULIN HUMULIN R 100 UNIT/ML 3ML SQ SCH ×4 (07:30→21:00)
[2019-10-21 08:00] VITALS: BP 135/45
[2019-10-21] MEDS: METOPROLOL TARTRATE 25 MG TAB PO SCH ×2 (08:51→21:22)
[2019-10-21] MEDS: ASPIRIN 325 MG TABLET PO SCH (08:51)
[2019-10-21] MEDS: SERTRALINE HCL 50 MG TABLET PO SCH (08:51)
[2019-10-21] MEDS: Vitamin B Complex/Vit C/Folic Acid PO SCH (08:51)
[2019-10-21] MEDS: FAMOTIDINE 20MG TAB 20 MG TAB PO SCH (08:51)
[2019-10-21] MEDS ORDERED: ENOXAPARIN SODIUM 30 MG/0.3 ML SQ SCH (09:00)
[2019-10-21 11:13] VITALS: BP 112/60
[2019-10-21] MEDS ORDERED: ALPRAZOLAM 1 MG TAB PO PRN (13:00)
[2019-10-21 15:53] VITALS: BP 137/66
[2019-10-21 19:00] VITALS: BP 139/66
[2019-10-21] MEDS: ATORVASTATIN CALCIUM 40 MG TABLET PO SCH (21:21)
[2019-10-21] MEDS: TRAMADOL HCL 50 MG TABLET PO PRN (21:24)
[2019-10-22 00:34] VITALS: BP 148/71
[2019-10-22 03:18] VITALS: BP 141/66
[2019-10-22 04:41] LABS: BASOPHILS % (AUTO) 0.2 % (0.0-5.0); EOSINOPHILS % (AUTO) 0.3 % (0.0-8.0); HEMATOCRIT 25.3 % (42-54); LYMPHOCYTES % (AUTO) 5.4 % (21.0-51.0); MEAN CORPUSCULAR HEMOGLOBIN 30.5 pg (27.0-33.0); MEAN CORPUSCULAR HGB CONC 33.6 g/dL (32.0-36.0); MEAN CORPUSCULAR VOLUME 90.7 fL (79-99); MONOCYTES % (AUTO) 7.3 % (3.0-13.0); NEUTROPHILS % (AUTO) 85.9 % (40.0-77.0); NUCLEATED RED BLOOD CELLS 0.4 % (0.0-0.19); PLATELET COUNT (AUTO) 91 K/uL (130-400); RED BLOOD CELL COUNT(AUTO) 2.79 MIL/uL (4.50-6.20); RED CELL DISTRIBUTION WIDTH 18.1 % (11.0-15.5); WHITE BLOOD COUNT (AUTO) 12.9 K/uL (4.8-10.8)
[2019-10-22 04:56] LABS: ALBUMIN 2.7 g/dL (3.5-5.0); BILIRUBIN,TOTAL 7.9 mg/dL (0.2-1.0); CREATININE 4.2 mg/dL (0.5-1.5); MAGNESIUM 2.3 mg/dL (1.80-2.40); POTASSIUM 3.9 mmol/L (3.5-5.1); TOTAL PROTEIN, SERUM 5.7 g/dL (6.0-8.3)
[2019-10-22] MEDS: ACETAMINOPHEN 325 MG TAB PO PRN ×2 (05:34→21:16)
[2019-10-22] MEDS: IPRATROPIUM 0.5 MG/2.5 ML INH IH SCH ×4 (06:29→23:54)
[2019-10-22] MEDS: INSULIN HUMULIN R 100 UNIT/ML 3ML SQ SCH ×4 (07:30→21:00)
[2019-10-22] MEDS ORDERED: THIAMINE HCL 100 MG/ML 2ML VIAL IVP SCH (08:00)
[2019-10-22 08:30] VITALS: BP 140/58
[2019-10-22] MEDS: HEPARIN SODIUM 5000UNIT/ML 1ML VIAL SQ SCH ×2 (09:30→21:10)
[2019-10-22] MEDS: ASPIRIN 325 MG TABLET PO SCH (09:33)
[2019-10-22] MEDS: METOPROLOL TARTRATE 25 MG TAB PO SCH ×2 (09:33→21:08)
[2019-10-22] MEDS: FAMOTIDINE 20MG TAB 20 MG TAB PO SCH (09:33)
[2019-10-22] MEDS: Vitamin B Complex/Vit C/Folic Acid PO SCH (09:33)
[2019-10-22] MEDS: SERTRALINE HCL 50 MG TABLET PO SCH (09:33)
[2019-10-22 11:00] VITALS: BP 126/62
[2019-10-22 16:07] VITALS: BP 124/69
--- NOTE | 2019-10-22 16:16 | NUR ---
CM NOTE/DC PLAN FOLLOW UP SNF ORDERED BY . CALLED SPOUSE, JOSE ANGEL ESTES [phone] AT AT 1555, NO ANSWER, VM LEFT. CALLED DAUGHTER, MARY ESTES [phone], NO ANSWER, VM LEFT. RETURN CALL AT 1616 AND STATES SHE WANTS PATIENT TO GO TO [facility]. SPOUSE EDUCATED ON DIFFERENCE BETWEEN WHAT DOCTOR ORDERED, SNF VS INPATIENT REHAB. PER , WANTS FACILITY AWAY FROM COVID PATIENTS AND THAT WILL LEFT FAMILY VISIT PATIENT. EDUCATED ON CDC GUIDELINES THAT SNF AND INPATIENTS REHAB FOLLOW OF NO VISITORS. STATES SHE DOES NOT WANT HIM IN A HALFWAY. WILL CONCERNS TO MD. PATIENT CONTINUES CONFUSED AND ON 1:1 STATUS. CM TO FOLLOW UP.
[2019-10-22 19:30] VITALS: BP 116/57
[2019-10-22] MEDS: ATORVASTATIN CALCIUM 40 MG TABLET PO SCH (21:08)
[2019-10-22] MEDS: DIPHENHYDRAMINE HCL 25 MG CAPSULE PO SCH (21:08)
[2019-10-23] VITALS (7 sets, daily range): BP systolic 104–134; BP diastolic 60–69
[2019-10-23 03:40] LABS: HEMATOCRIT 25.7 % (42-54); MEAN CORPUSCULAR HEMOGLOBIN 30.2 pg (27.0-33.0); MEAN CORPUSCULAR HGB CONC 33.1 g/dL (32.0-36.0); MEAN CORPUSCULAR VOLUME 91.5 fL (79-99); NUCLEATED RED BLOOD CELLS 0.4 % (0.0-0.19); PLATELET COUNT (AUTO) 91 K/uL (130-400); RED BLOOD CELL COUNT(AUTO) 2.81 MIL/uL (4.50-6.20); RED CELL DISTRIBUTION WIDTH 19.9 % (11.0-15.5); WHITE BLOOD COUNT (AUTO) 11.5 K/uL (4.8-10.8)
[2019-10-23 03:54] LABS: B-TYPE NATRIURETIC PEPTIDE > 5000 pg/mL (0-100)
[2019-10-23 04:01] LABS: CREATININE 5.7 mg/dL (0.5-1.5); PHOSPHORUS 6.3 mg/dL (2.5-4.9); POTASSIUM 4.3 mmol/L (3.5-5.1)
[2019-10-23] MEDS: IPRATROPIUM 0.5 MG/2.5 ML INH IH SCH ×4 (06:28→23:53)
[2019-10-23] MEDS: INSULIN HUMULIN R 100 UNIT/ML 3ML SQ SCH ×4 (07:30→23:27)
[2019-10-23] MEDS: Vitamin B Complex/Vit C/Folic Acid PO SCH ×2 (10:48→13:00)
[2019-10-23] MEDS: METOPROLOL TARTRATE 25 MG TAB PO SCH ×3 (10:48→23:25)
[2019-10-23] MEDS: FAMOTIDINE 20MG TAB 20 MG TAB PO SCH ×2 (10:48→13:00)
[2019-10-23] MEDS: ASPIRIN 325 MG TABLET PO SCH ×2 (10:48→13:00)
[2019-10-23] MEDS: SERTRALINE HCL 50 MG TABLET PO SCH ×2 (10:50→13:00)
[2019-10-23] MEDS: THIAMINE HCL 100 MG TABLET PO SCH ×2 (10:50→13:00)
[2019-10-23] MEDS: HEPARIN SODIUM 5000UNIT/ML 1ML VIAL SQ SCH ×2 (10:51→23:23)
--- NOTE | 2019-10-23 12:44 | NUR ---
SPOKE TO SPOUSE RE WALDEMAR PLANNING- SPOUSE REQ [facility]. Advised spouse that this CM does not have a physician order for that level of care, and patient still on a one to one. Will need to demonstrate ability to follow commands.Took MIKAYLA for [facility]. attempted to follow up with MD for order for rehab referral but no answer. Addendum: 10/23/19 at 1248 by LOU GANDHI RN Amended: Links added.
[2019-10-23] MEDS: DIPHENHYDRAMINE HCL 25 MG CAPSULE PO SCH (23:25)
[2019-10-23] MEDS: ACETAMINOPHEN 325 MG TAB PO PRN (23:25)
[2019-10-23] MEDS: ATORVASTATIN CALCIUM 40 MG TABLET PO SCH (23:28)
[2019-10-24 03:42] LABS: HEMATOCRIT 26.3 % (42-54); MEAN CORPUSCULAR HEMOGLOBIN 30.7 pg (27.0-33.0); MEAN CORPUSCULAR HGB CONC 33.1 g/dL (32.0-36.0); MEAN CORPUSCULAR VOLUME 92.9 fL (79-99); NUCLEATED RED BLOOD CELLS 0.3 % (0.0-0.19); RED BLOOD CELL COUNT(AUTO) 2.83 MIL/uL (4.50-6.20); RED CELL DISTRIBUTION WIDTH 21.4 % (11.0-15.5); WHITE BLOOD COUNT (AUTO) 12.2 K/uL (4.8-10.8)
[2019-10-24 04:00] VITALS: BP 99/60
[2019-10-24 04:17] LABS: ALBUMIN 2.6 g/dL (3.5-5.0); BILIRUBIN,TOTAL 6.6 mg/dL (0.2-1.0); CREATININE 7.2 mg/dL (0.5-1.5); MAGNESIUM 2.7 mg/dL (1.80-2.40); PHOSPHORUS 7.1 mg/dL (2.5-4.9); POTASSIUM 4.3 mmol/L (3.5-5.1)
[2019-10-24] MEDS: IPRATROPIUM 0.5 MG/2.5 ML INH IH SCH ×4 (06:24→23:30)
[2019-10-24 07:00] VITALS: BP 111/53
[2019-10-24] MEDS: INSULIN HUMULIN R 100 UNIT/ML 3ML SQ SCH ×4 (07:30→19:54)
--- NOTE | 2019-10-24 09:10 | NUR ---
DYSPHAGIA EVAL COMPLETED. S/S OF ASPIRATION AT THIS TIME. RECOMMEND FREQUENT SMALL MEALS OF REGULAR SOLIDS, THIN LIQUIDS, AND PILLS CRUSHED WITH APPLESAUCE TOLERATED. Pt ON FREQUENT SMALL MEALS IN ORDER TO INCREASE P.O. INTAKE. AUTOPSY PATHOLOGIST COORDINATED WITH NURSE TOURE. Addendum: 10/24/[address] ALYCIA HINKLE Amended: Links added.
[2019-10-24] MEDS: SERTRALINE HCL 50 MG TABLET PO SCH (09:36)
[2019-10-24] MEDS: ASPIRIN 325 MG TABLET PO SCH (09:36)
[2019-10-24] MEDS: Vitamin B Complex/Vit C/Folic Acid PO SCH (09:36)
[2019-10-24] MEDS: METOPROLOL TARTRATE 25 MG TAB PO SCH ×2 (09:36→19:51)
[2019-10-24] MEDS: THIAMINE HCL 100 MG TABLET PO SCH (09:36)
[2019-10-24] MEDS: FAMOTIDINE 20MG TAB 20 MG TAB PO SCH (09:36)
[2019-10-24] MEDS: HEPARIN SODIUM 5000UNIT/ML 1ML VIAL SQ SCH (10:00)
[2019-10-24] MEDS ORDERED: CLOPIDOGREL BISULFATE 75 MG TAB PO SCH (10:15)
--- NOTE | 2019-10-24 10:26 | NUR ---
RD NOTIFICATION RD discussed POC with ST and RN. Tube feeding Canceled, as per RN. Pt is able to tolerate oral feeding in small amounts. Pt with some altered mental status. Recommend to modify diet order to Renal Dialysis, 6 small meals per day Recommend add 60mL ProMod BID - with meals or between meals as medically feasible RD to continue to monitor. Please notify as additional nutrition concerns arise. Thank you. Addendum: 10/24/19 at [address] Amended: Links added.
[2019-10-24 11:00] VITALS: BP 128/62
[2019-10-24 15:00] VITALS: BP 142/68
[2019-10-24 19:02] VITALS: BP 104/59
[2019-10-24] MEDS: DIPHENHYDRAMINE HCL 25 MG CAPSULE PO SCH (19:51)
[2019-10-24] MEDS: ATORVASTATIN CALCIUM 40 MG TABLET PO SCH (19:52)
[2019-10-24] MEDS: ACETAMINOPHEN 325 MG TAB PO PRN (19:52)
[2019-10-24 23:52] VITALS: BP 93/58
--- NOTE | 2019-10-25 01:28 | NUR ---
CODE BLUE SEE CODE BLUE RECORD. ACCORDING TO BRAND EXECUTIVE, PT.'S RHYTHM WENT FROM SINUS 60 DOWN TO SB 30; THEN ASYSTOLE PRIOR TO ACTIVATION OF CODE BLUE
[2019-10-25 01:55] LABS: MEAN CORPUSCULAR HEMOGLOBIN 31.5 pg (27.0-33.0); MEAN CORPUSCULAR HGB CONC 31.9 g/dL (32.0-36.0); MEAN CORPUSCULAR VOLUME 98.7 fL (79-99); NUCLEATED RED BLOOD CELLS 0.5 % (0.0-0.19); RED BLOOD CELL COUNT(AUTO) 3.14 MIL/uL (4.50-6.20); RED CELL DISTRIBUTION WIDTH 23.9 % (11.0-15.5); WHITE BLOOD COUNT (AUTO) 20.2 K/uL (4.8-10.8)
[2019-10-25] MEDS ORDERED: EPINEPHRINE 1 MG/ML AMPULE ONE (02:13)
[2019-10-25] MEDS ORDERED: SODIUM CHLORIDE 0.9% 1000ML 1,000 ML IV ONE (02:14)
[2019-10-25] MEDS ORDERED: SODIUM CHLORIDE 0.9% 250 ML IV ONE (02:18)
[2019-10-25] MEDS ORDERED: EPINEPHRINE 1 MG/ML 30ML VIAL IJ ONE (02:19)
[2019-10-25 02:37] LABS: CREATININE 5.1 mg/dL (0.5-1.5); MAGNESIUM 2.7 mg/dL (1.80-2.40); PHOSPHORUS 8.2 mg/dL (2.5-4.9)
[2019-10-25 02:39] LABS: POTASSIUM 6.5 mmol/L (3.5-5.1)
[2019-10-25 02:40] LABS: TROPONIN I 1.36 ng/mL (0.00-0.06)
--- NOTE | 2019-10-25 02:57 | NUR ---
PT. PRONOUNCED BY DR. Makeda CHRISTIANSON AFTER FULL ARREST AND CODE BLUE ACTIVATED. NO BREATH SOUNDS OR HEART TONES--NO RHYTHM ON MONITOR. SPOUSE AND SON AT BEDSIDE.
--- NOTE | 2019-10-25 03:13 | NUR ---
DR. BOATENG NOTIFIED OF PATIENT'S
--- NOTE | 2019-10-25 03:41 | NUR ---
STERLING ZEPEDA NOTIFIED OF PATIENT'S
--- NOTE | 2019-10-26 03:00 | NUR ---
Cardiac Arrest at 0126 Arlyn CAN was notified of EKG changes patient's HR had become thi in the 50s, upon assessment patient non-responsive and lethargic, at 0127 patient heart rhythm changed to junctional rhythm in the 30s with agonal breathing viewed in crash cart monitored. Code blue activated at 0128 patient in PEA. After an extensive resuscitation effort patient's spouse Missy Spencer accompanied by son decided to terminate efforts. For more information see code sheet Addendum: 10/26/19 at 1016 by ARLYN DORADO RN RN note for 10/25/2019
== END 2019-10-25 02:57 | disposition expired | DRG 235 ==
LOC: DAHIP 18:46 → PAH.CVR 10-16 09:57 → 2CH 10-18 19:52 → 4AH 10-20 14:35
PROVIDERS: ADMIT Thoracic Surgery (Cardiothoracic Vascular Surgery); ATTEND Thoracic Surgery (Cardiothoracic Vascular Surgery)
PROC: 0W3C0ZZ Control Bleeding in Mediastinum, Open Approach (ICD-10-PCS; 2019-10-16)
PROC: 02CN0ZZ Extirpation of Matter from Pericardium, Open Approach (ICD-10-PCS; 2019-10-16)
PROC: 5A02210 Assistance with Cardiac Output using Balloon Pump, Continuous (ICD-10-PCS; 2019-10-16)
PROC: 02100Z9 Bypass Coronary Artery, One Artery from Left Internal Mammary, Open Approach (ICD-10-PCS; principal; 2019-10-16 08:31)
PROC: 021109W Bypass Coronary Artery, Two Arteries from Aorta with Autologous Venous Tissue, Open Approach (ICD-10-PCS; 2019-10-16 08:31)
PROC: 06BP4ZZ Excision of Right Saphenous Vein, Percutaneous Endoscopic Approach (ICD-10-PCS; 2019-10-16 08:31)
PROC: 5A1D70Z Performance of Urinary Filtration, Intermittent, Less than 6 Hours Per Day (ICD-10-PCS; 2019-10-17)
PROC: 5A09357 Assistance with Respiratory Ventilation, Less than 24 Consecutive Hours, Continuous Positive Airway Pressure (ICD-10-PCS; 2019-10-17)
PROC: 5A1D70Z Performance of Urinary Filtration, Intermittent, Less than 6 Hours Per Day (ICD-10-PCS; 2019-10-18)
PROC: 5A1D70Z Performance of Urinary Filtration, Intermittent, Less than 6 Hours Per Day (ICD-10-PCS; 2019-10-19)
PROC: 5A1D70Z Performance of Urinary Filtration, Intermittent, Less than 6 Hours Per Day (ICD-10-PCS; 2019-10-21)
PROC: 5A1D70Z Performance of Urinary Filtration, Intermittent, Less than 6 Hours Per Day (ICD-10-PCS; 2019-10-24)
PROC: 30233K1 Transfusion of Nonautologous Frozen Plasma into Peripheral Vein, Percutaneous Approach (ICD-10-PCS; 2019-10-24)
PROC: 30233N1 Transfusion of Nonautologous Red Blood Cells into Peripheral Vein, Percutaneous Approach (ICD-10-PCS; 2019-10-24)
PROC: 30233R1 Transfusion of Nonautologous Platelets into Peripheral Vein, Percutaneous Approach (ICD-10-PCS; 2019-10-24)
DX: I21.4 Non-ST elevation (NSTEMI) myocardial infarction (principal); N18.6 End stage renal disease; G93.41 Metabolic encephalopathy; J95.1 Acute pulmonary insufficiency following thoracic surgery; I12.0 Hypertensive chronic kidney disease with stage 5 chronic kidney disease or end stage renal disease; I31.4 Cardiac tamponade; J81.1 Chronic pulmonary edema; R17 Unspecified jaundice; I97.611 Postprocedural hemorrhage of a circulatory system organ or structure following cardiac bypass; I25.10 Atherosclerotic heart disease of native coronary artery without angina pectoris; E11.22 Type 2 diabetes mellitus with diabetic chronic kidney disease; E78.5 Hyperlipidemia, unspecified; D63.8 Anemia in other chronic diseases classified elsewhere; D69.6 Thrombocytopenia, unspecified; D72.829 Elevated white blood cell count, unspecified; E11.51 Type 2 diabetes mellitus with diabetic peripheral angiopathy without gangrene; E66.01 Morbid (severe) obesity due to excess calories; E78.00 Pure hypercholesterolemia, unspecified; E87.70 Fluid overload, unspecified; F10.10 Alcohol abuse, uncomplicated; F14.10 Cocaine abuse, uncomplicated; G47.00 Insomnia, unspecified; H70.93 Unspecified mastoiditis, bilateral; I25.5 Ischemic cardiomyopathy; I27.21 Secondary pulmonary arterial hypertension; I35.0 Nonrheumatic aortic (valve) stenosis; I48.0 Paroxysmal atrial fibrillation; I95.81 Postprocedural hypotension; J44.9 Chronic obstructive pulmonary disease, unspecified; R57.0 Cardiogenic shock; Z20.828 Contact with and (suspected) exposure to other viral communicable diseases; Z68.25 Body mass index [BMI] 25.0-25.9, adult; Z99.2 Dependence on renal dialysis; I25.2 Old myocardial infarction; Z79.82 Long term (current) use of aspirin; Z79.899 Other long term (current) drug therapy; Z87.891 Personal history of nicotine dependence; Z86.73 Personal history of transient ischemic attack (TIA), and cerebral infarction without residual deficits; Y83.2 Surgical operation with anastomosis, bypass or graft as the cause of abnormal reaction of the patient, or of later complication, without mention of misadventure at the time of the procedure; Y71.3 Surgical instruments, materials and cardiovascular devices (including sutures) associated with adverse incidents
CPT/HCPCS: 31500; 36415; 36430; 36600; 70450; 71045; 76700; 80048; 80053; 80061; 82140; 82330; 82435; 82550; 82803; 82947; 82948; 83036; 83540; 83550; 83605; 83735; 83874; 83880; 84100; 84132; 84295; 84484; 85014; 85018; 85025; 85027; 85049; 85347; 85384; 85610; 85730; 86704; 86706; 86850; 86900; 86901; 86922; 86927; 87340; 87520; 90935; 92610; 92950; 93005; 93306; 93356; 93880; 94002; 94003; 94010; 94640; 94660; 94664; 97039; A7048; G0378; J0171; J0282; J0461; J0610; J0690; J0885; J1265; J1644; J1650; J1815; J2001; J2250; J2260; J2270; J2440; J2704; J2720; J3010; J3411; J3475; J3490; J7030; J7040; J7050; J7060; J7120; P9012; P9016; P9017; P9034; P9045; P9046; Q0163